=== PATIENT | female | born 1955 | race Caucasian/White ===

== ENCOUNTER 2020-04-18 06:30 | Day surgery (SDC) | payer MEDICARE ==
[~2020-04-18] VITALS: Ht 149.9 cm; Wt 68.2 kg
[~2020-04-18 06:30] MED LIST: ASPI-728 PO; ATOR40TA28 PO; CHOL100018 PO; GLIP5 PO; LISI-662 PO; MONT10TA21 PO; OMEG-135 PO; OMEP20 PO; PREG50 PO; SITA100 PO; SODIUM CHLORIDE 0.9% 1,000 ML ONE; TRAZ-252 PO; UMEC62.5 IH; VIT1CAPS47 PO
[2020-04-18] MEDS ORDERED: BENZOCAINE 20% 50 MCG/SPRAY 57 GM TP ONE (06:31)
[2020-04-18] MEDS ORDERED: LIDOCAINE 2% 30 ML JELLY TP ONE (06:31)
[2020-04-18] MEDS ORDERED: LIDOCAINE 4% 50 ML SOLUTION TP ONE (06:31)
[2020-04-18] MEDS ORDERED: SODIUM CHLORIDE 0.9% 1,000 ML IV ONE (07:00)
[2020-04-18 07:17] LABS: GLUCOMETER DEV NAME(LOC) SDS.; GLUCOSE,POINT OF CARE 150 MG/DL (70-110)
[2020-04-18] MEDS ORDERED: MIDAZOLAM HCL 2 MG/2 ML VIAL ONE (08:07)
[2020-04-18] MEDS ORDERED: FentaNYL CITRATE-PF 100 MCG/2 ML VIAL ONE (08:07)
[2020-04-18] MEDS ORDERED: MethylPREDNISolone SOD SUCC 125 MG/2 ML VIAL ONE (08:45)
[2020-04-18] MEDS ORDERED: MethylPREDNISolone SOD SUCC 125 MG/2 ML VIAL IVP ONE (08:45)
[2020-04-18] MEDS ORDERED: OXYGEN THERAPY IH SCH (20:00)
== END 2020-04-18 10:15 | disposition home or self-care (01) ==
LOC: SURGERY 06:30
PROVIDERS: ATTEND Internal Medicine Critical Care Medicine
DX: R05 Cough (principal); R91.1 Solitary pulmonary nodule; J34.89 Other specified disorders of nose and nasal sinuses; J38.4 Edema of larynx; J98.8 Other specified respiratory disorders; B37.0 Candidal stomatitis; E11.9 Type 2 diabetes mellitus without complications; I10 Essential (primary) hypertension; E78.00 Pure hypercholesterolemia, unspecified; K21.9 Gastro-esophageal reflux disease without esophagitis; J44.9 Chronic obstructive pulmonary disease, unspecified; G47.30 Sleep apnea, unspecified; Z79.899 Other long term (current) drug therapy; Z11.59 Encounter for screening for other viral diseases
CPT/HCPCS: 31623; 31624; 71045; 82962; 87015; 87070; 87101; 87205; 87206; 87220; 87635; 88112; 88312; 93005; J2250; J2930; J3010; J7030